=== PATIENT | male | born 1955 | race Caucasian/White ===

== ENCOUNTER 2025-07-22 14:11 | Emergency (ER) | payer MEDICARE ==
[2025-07-22] MEDS: Bacitracin Oint 1 GM U/D Packet TOP ONE (14:33)
== END 2025-07-22 14:38 | disposition home or self-care (01) ==
LOC: LB.ED 14:11
DX: S60.451A Superficial foreign body of left index finger, initial encounter (principal); W45.8XXA Other foreign body or object entering through skin, initial encounter; Y93.89 Activity, other specified
CPT/HCPCS: 64450; 99283; J2003